=== PATIENT | male | born 1935 | race Caucasian/White ===

== ENCOUNTER 2017-11-09 08:30 | Inpatient (IN) | payer OTHER, MEDICARE ==
[~2017-11-09] VITALS: Ht 177.8 cm; Wt 94.5 kg
[~2017-11-09 08:30] MED LIST: ALBUAER19 INH; AMLO10TA3 PO; APIX1TAB3 PO; ATOR10TA82 PO; BENA20TA14 PO; FINA5TAB4 PO; FLUT0.15 NAE; METO25TA56 PO; MULT-188 PO; MULT-845 PO; ZINC1TAB PO
--- NOTE | 2017-11-09 08:55 | History & Physical Bridge Note ---
H&P Re-Evaluation Bridge Note: I have examined the patient, reviewed the History & Physical and in the interval since the performance of the History & Physical I have noted the following changes of clinical significance: No changes noted
[2017-11-09 09:00] VITALS: BP 121/75; PULSE 101; TEMP 36.7; O2SAT 96; Ht 177.8 cm; Wt 94.5 kg
[2017-11-09] MEDS ORDERED: ZOLPIDEM TARTRATE 5 MG TAB PO PRN (09:00)
[2017-11-09] MEDS ORDERED: ACETAMINOPHEN 325 MG TAB PO PRN (09:00)
[2017-11-09] MEDS ORDERED: ALUMINUM/MAGNESIUM/SIMETH (MAALOX MAX) 30 ML UDC PO PRN (09:00)
[2017-11-09] MEDS ORDERED: ONDANSETRON INJ 2 MG/ML 2 ML VIAL IV PRN (09:00)
[2017-11-09] MEDS ORDERED: MAGNESIUM HYDROXIDE SUSP 30 ML UDC PO PRN (09:00)
[2017-11-09] MEDS ORDERED: POLYETHYLENE (MIRALAX) 17 GM PACK PO PRN (09:00)
[2017-11-09 09:07] VITALS: BP 121/75; PULSE 102; TEMP 36.7; O2SAT 96
[2017-11-09] MEDS ORDERED: ASCA500 PO (09:24)
[2017-11-09] MEDS ORDERED: CINN500C13 PO (09:24)
[2017-11-09] MEDS ORDERED: GING1CAP2 PO (09:24)
[2017-11-09] MEDS ORDERED: CYAN100020 PO (09:24)
[2017-11-09] MEDS ORDERED: PYRI100T4 PO (09:24)
[2017-11-09] MEDS ORDERED: ROYA500C PO (09:24)
[2017-11-09 10:14] LABS: BASO % 0.5 %; BASO ABS # 0.04 K/uL (0-0.2); EOS % 4.8 %; EOS ABS # 0.35 K/uL (0-0.5); HEMATOCRIT 41.3 % (42-52); HEMOGLOBIN 14.2 g/dL (14.0-18.0); IG# 0.02 K/uL (0.00-0.02); LYMPH % 13.9 %; LYMPH ABS # 1.02 K/uL (1.2-3.4); MEAN CELL VOLUME 90.8 fL (80-100); MEAN CORPUSCULAR HEMOGLOBIN 31.2 pg (25-34); MEAN CORPUSCULAR HGB CONC 34.4 g/dl (32-36); MEAN PLATELET VOLUME 10.6 fL (7.4-10.4); MONO % 12.6 %; MONO ABS # 0.92 K/uL (0.11-0.59); NEUT % 67.9 %; NEUT ABS # 4.98 K/uL (1.4-6.5); PLATELET COUNT 145 K/uL (130-400); RED CELL DISTRIBUTION WIDTH CV 12.7 % (11.5-14.5); RED CELL DISTRIBUTION WIDTH SD 41.9 fL (36.4-46.3); WHITE BLOOD COUNT 7.33 K/uL (4.8-10.8)
--- NOTE | 2017-11-09 10:41 | History and Physical ---
"History & Physical Date of Service Nov 09, 2017. History & Physical Mr. Manzano is a very pleasant 82-year-old gentleman who has been following us here in the cardiology clinic for his history of paroxysmal atrial fibrillation. ~Since the last evaluation with me in October of 2016, he states he has been doing okay, but notes he just does not seem to have the same energy he did when he was back in sinus rhythm. ~He states he tires ~quickly with activities that normally would not be an issue for him, but he denies any specific episodes of chest pain, shortness of breath, palpitations, light- headedness, dizziness, or syncope. ~He has been taking his medications as directed without issue and has not missed any dosages of his Eliquis. Today's question, whether or not it would be appropriate to perform a cardioversion with sotalol load which we discussed at our last appointment. PAST MEDICAL HISTORY: ~ 1.~~~~~~~~~~~~~~Paroxysmal atrial fibrillation with a CHADS score of 2. 2.~~~~~~~~~~~~~~History of symptomatic ectopy, both atrial and ventricular. 3.~~~~~~~~~~~~~~Hypertension. 4.~~~~~~~~~~~~~~Dyslipidemia. 5.~~~~~~~~~~~~~~Moderate mitral regurgitation. Review of Systems: Constitutional: ~Denies fevers or chills. ~Denies weight loss. ~~ HEENT: ~No amaurosis fugax. ~No recent significant change in vision. ~No recent change in hearing. ~No significant epistaxis. Pulmonary: ~No history of sleep apnea, pulmonary embolism, COPD or asthma. ~ Cardiovascular: ~As per HPI. GI/Abdomen: ~No dysphagia, pain, melena or hematochezia. ~No significant heartburn. ~Patient denies history of liver or kidney problems. Vascular: ~Patient denies history of claudication, AAA or carotid artery disease. Hematologic: ~No coagulation disorder, anemia or abnormal bleeding. Musculoskeletal: Negative. Skin: ~Negative. Neurologic: ~Normal balance. ~No TIA or CVA symptoms. ~No syncope or near syncope. : Denies. Endocrine: ~No diabetes mellitus or thyroid problems. ~ Allergies as of 11/03/2017 - Kyaw as Reviewed 11/03/2017 Allergen Reaction Noted Kaela hct [valsartan-hydrochlorothiazide] 12/02/2010 Other - drugs 12/09/2005 Current Outpatient Prescriptions Medication Sig Dispense Refill amLODIPine (NORVASC) 10 MG Tablet Take 1 Tab by mouth daily. 90 Tab 3 amoxicillin (AMOXIL) 500 MG Capsule apixaban (ELIQUIS) 5 MG Tablet Take 1 Tab by mouth 2 times a day. 60 Tab 11 atorvaSTATin (LIPITOR) 10 MG Tablet Take 1 Tab by mouth daily. 90 Tab 3 benazepril (LOTENSIN) 20 MG Tablet Take 1 Tab by mouth daily. 90 Tab 3 finasteride (PROSCAR) 5 MG Tablet Take 1 Tab by mouth daily. 90 Tab 3 azithromycin (ZITHROMAX) 250 MG Tablet Take 2 tabs by mouth on the first day, then 1 tab daily on days two through five 6 Tab 0 albuterol (VENTOLIN HFA) 108 (90 BASE) MCG/ACT inhaler Inhale 2 Puffs by mouth every 4 hours as needed for Wheezing. 3 Inhaler 1 metoprolol tartrate (LOPRESSOR) 25 MG Tablet Take 3 Tabs by mouth 2 times a day. 540 Tab 3 Apoaequorin 10 MG CAPS Take 10 mg by mouth 3 times a week. Cinnamon 500 MG Capsule Take 1,000 mg by mouth daily. Flaxseed, Linseed, (EQL FLAX SEED OIL) 1000 MG CAPS Take 1,000 mg by mouth 2 times a day. [place] Jelly 500 MG CAPS Take 1,000 mg by mouth once. Hydrocortisone Butyrate 0.1 % CREA Apply ~topically to affected area daily as needed for Itching or Dry Skin. Apply to affected area 45 g 3 fluticasone (FLONASE) 50 MCG/ACT nasal spray Administer 2 Sprays into each nostril daily. 1 Inhaler 5 NASACORT ALLERGY 24HR 55 MCG/ACT NA AERO 2 sqirts each nostril as needed CENTRUM SILVER PO TABS 1 TABLET DAILY 30 Tab 0 OCUVITE PO TABS 1 TABLET DAILY 30 Tab 1 ZINC 50 MG PO CAPS 1 CAPSULE DAILY 30 Cap 1 PHYSICAL EXAM: Vital Signs: BP 118/76 | Pulse 98 | Resp 16 | Wt 211 lbs 11.2 oz (96.026kg) | BMI 31.64 kg/m | BSA 2.16 m General: ~Awake, alert and oriented x 3. ~No acute distress. HEENT: ~Normocephalic, atraumatic. ~Pupils equal, round and reactive to light and accommodation. ~Extraocular muscles are intact. ~Anicteric sclera. ~Moist mucous membranes. Neck: ~No JVD. ~No bruit. Cardiovascular: ~Irregularly irregular, unable to appreciate murmur, rub or gallop. Pulmonary: ~Clear to auscultation bilaterally. ~No rales, rhonchi, or wheezing. ~~ Abdomen: ~Bowel sounds x 4, soft. ~No rebound, guarding or tenderness. ~No organomegaly. Extremities: ~No clubbing, cyanosis or edema. ~+2 pedal pulses bilaterally. Skin: ~Warm and dry. TEST RESULTS: ~12-lead EKG performed today independently reviewed at this time shows atrial fibrillation at 77 beats per minute. IMPRESSION: ~ 1.~~~~~~~~~~~~~~Atrial fibrillation, symptomatic on chronic Eliquis anticoagulation. 2.~~~~~~~~~~~~~~History of symptomatic ectopy. 3.~~~~~~~~~~~~~~Moderate mitral regurgitation. 4.~~~~~~~~~~~~~~Hypertension. 5.~~~~~~~~~~~~~~Normal LV systolic function, EF 55%, 60%. RECOMMENDATIONS: ~It was my pleasure see Mr. Manzano in reevaluation today. ~From a cardiac standpoint, he was counseled on the benefits, risks, and options in regard to sotalol loading and cardioversion. ~Given the fact he does appear to be symptomatic at this point, I do believe it will be worth a trial. ~So, we will plan on admitting him to [facility] on November 09, and he will initiate sotalol loading for 2 days and then ~likely undergo Dc cardioversion on the with ultimate discharge on the . ~Otherwise, I have given him new prescriptions for all of his medications, but will not renew the metoprolol at this time, and he will get a sotalol prescription after discharge. ~Then I will see him back here before he leaves for [place] in approximately 6 weeks. The patient left the office in good spirits after verbalizing that all of their questions were answered to satisfaction. Prior to their next visit, they were invited to call me with any questions or concerns. Thank you very much for allowing me to participate in the care of your patient. Ramy Blandon Jr, DO Department of Cardiology [facility], [facility]"
[2017-11-09 10:47] LABS: ALBUMIN 3.2 gm/dl (3.4-5.0); CALCIUM 8.6 mg/dl (8.5-10.1); CREATININE 1.02 mg/dl (0.60-1.40); TOTAL PROTEIN 6.4 gm/dl (6.4-8.2)
[2017-11-09] MEDS ORDERED: SOTALOL HCL 80 MG TAB PO STA (11:16)
[2017-11-09 11:39] VITALS: BP 120/79; PULSE 87; TEMP 36.8; O2SAT 96
[2017-11-09 15:34] VITALS: BP 108/72; PULSE 79; TEMP 36.8; O2SAT 97
[2017-11-09 19:50] VITALS: BP 129/75; PULSE 86; TEMP 36.7; O2SAT 97
[2017-11-09] MEDS: APIXABAN 5 MG TAB PO SCH (20:26)
[2017-11-09] MEDS: SOTALOL HCL 80 MG TAB PO SCH (20:29)
[2017-11-09] MEDS ORDERED: NURSING VERBAL MED ORDER ONE (21:30)
[2017-11-09] MEDS: ATORVASTATIN 10 MG TAB PO SCH (22:05)
[2017-11-09] MEDS: FINASTERIDE 5 MG TAB PO SCH (22:06)
[2017-11-09 23:11] VITALS: BP 110/71; PULSE 73; TEMP 36.6; O2SAT 97
[2017-11-10 03:01] VITALS: BP 115/73; PULSE 81; TEMP 36.7; O2SAT 98
[2017-11-10 07:04] VITALS: BP 120/78; PULSE 81; TEMP 36.8; O2SAT 97
[2017-11-10] MEDS: LISINOPRIL 20 MG TAB PO SCH (08:25)
[2017-11-10] MEDS: APIXABAN 5 MG TAB PO SCH ×2 (08:25→20:27)
[2017-11-10] MEDS: CEROVITE ADV FORMULA TAB PO SCH (08:25)
[2017-11-10] MEDS: SOTALOL HCL 80 MG TAB PO SCH ×2 (08:25→20:29)
[2017-11-10] MEDS: FLUTICASONE PROPIONATE NA SPR 16 GM BTL SCH (08:26)
[2017-11-10] MEDS: AMLODIPINE BESYLATE 5 MG TAB PO SCH (08:26)
[2017-11-10] MEDS ORDERED: FINASTERIDE 5 MG TAB PO SCH (09:00)
[2017-11-10] MEDS ORDERED: ATORVASTATIN 10 MG TAB PO SCH (09:00)
--- NOTE | 2017-11-10 10:22 | Cardiology Follow-Up ---
Subjective Subjective Date of Service: Nov 10, 2017. Pt evaluation today including: conversation w/ patient, physical exam, chart review, lab review, review of studies, review of inpatient medication list Additional Details: Pt seen and examined oob in chair, states that he feels great. Denies cp, sob, palpitations, lightheadedness or dizziness. Tolerating sotalol well. Tele reviewed: atrial fibrillation rate controlled with ventricular ectopy or arrhythmia EKG: afib with QTc of 444ms Problem List Medical Problems: (1) Atrial fibrillation with rapid ventricular response Status: Acute Review of Systems Respiratory: No see HPI, No cough, No sputum, No wheezing, No shortness of breath, No dyspnea on exertion, No dyspnea at rest, No hemoptysis, No problem reported Cardiac: No see HPI, No chest pain, No orthopnea, No PND, No edema, No claudication, No palpitations, No problem reported Objective Vital Signs Last Vital Signs Documentation Date Time Temp Pulse Resp B/P (MAP) Pulse Ox O2 Delivery O2 Flow Rate FiO2 11/10/17 08:00 Room Air 11/10/17 07:04 36.8 81 17 120/78 (92) 97 Physical Exam: General Appearance: WD/WN, no apparent distress Eyes: bilateral eyes normal inspection, bilateral eyes PERRL, bilateral eyes EOMI ENT: normal ENT inspection, hearing grossly normal, pharynx normal Neck: supple, no adenopathy, thyroid normal, no JVD, no carotid bruits, trachea midline Respiratory/Chest: chest non-tender, lungs clear, normal breath sounds, no respiratory distress Cardiovascular: no edema, no JVD, no murmur, + irregularly irregular Abdomen: normal bowel sounds, non tender, soft, no organomegaly Extremities: normal inspection, no pedal edema, no calf tenderness 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 atrial fibrillation rates controlled tolerating sotalol load well no ventricular arrhythmias or significant ectopy QTc remains stable without significant prolongation cont Eliquis will cont sotalol load plan on cardioversion in AM pt should receive AM dose of sotalol prior to cardioversion npo after midnight
[2017-11-10 11:41] VITALS: BP 103/72; PULSE 78; TEMP 36.4; O2SAT 95
[2017-11-10] MEDS ORDERED: NURSING VERBAL MED ORDER ONE (12:45)
[2017-11-10] MEDS ORDERED: LOPERAMIDE HCL 2 MG CAP PO PRN (13:00)
[2017-11-10] MEDS ORDERED: LOPERAMIDE HCL 2 MG CAP PO ONE (13:00)
[2017-11-10 15:22] VITALS: BP 107/70; PULSE 70; TEMP 36.4; O2SAT 97
[2017-11-10 19:23] VITALS: BP 113/73; PULSE 80; TEMP 36.8; O2SAT 95
[2017-11-10] MEDS: ATORVASTATIN 10 MG TAB PO SCH (20:28)
[2017-11-10] MEDS: FINASTERIDE 5 MG TAB PO SCH (20:28)
[2017-11-10 23:44] VITALS: BP 107/71; PULSE 84; TEMP 36.9; O2SAT 98
[2017-11-11] VITALS (11 sets, daily range): BP systolic 102–136; BP diastolic 71–91; PULSE 63–90; TEMP 36.3–36.6; O2SAT 94–99
[2017-11-11] MEDS: SOTALOL HCL 80 MG TAB PO SCH ×2 (07:47→20:51)
[2017-11-11] MEDS ORDERED: MIDAZOLAM HCL 1 MG/ML 2ML VIAL ONE ×2 (08:53→09:05)
[2017-11-11] MEDS ORDERED: FENTANYL CITRATE INJ 50 MCG/1 ML 2 ML VIAL ONE (08:53)
[2017-11-11] MEDS: FLUTICASONE PROPIONATE NA SPR 16 GM BTL SCH (09:00)
--- NOTE | 2017-11-11 09:04 | Pre Sedation Assessment ---
Pre Sedation Assessment General Date of Sedation: Nov 11, 2017. Vital Signs Past 12 Hours Date Time Temp Pulse Resp B/P (MAP) Pulse Ox O2 Delivery O2 Flow Rate FiO2 11/11/17 08:46 36.8 89 12 128/82 (97) 96 Room Air 11/11/17 06:46 36.6 71 17 119/78 (92) 98 Room Air 11/11/17 03:31 36.6 84 18 112/73 (86) 94 Room Air 11/10/17 23:44 36.9 84 17 107/71 (83) 98 Room Air Review Cardiovascular: no edema, no gallop, no JVD, no murmur, normal peripheral pulses, + irregularly irregular Lungs: chest non-tender, lungs clear, normal breath sounds, no respiratory distress, no accessory muscle use Pre-Sedation Airway Assessment Smoking Status: Former Smoker Hx of Sleep Apnea: No Short Thick Neck: No Oral Cavity: Dentures Mallampati Classification: Class II ASA Classification: Class II NPO Status Date of Last Intake of Fluids: Nov 11, 2017 Time of Last Intake of Fluids: 0500 Date of Last Intake of Solids: Nov 10, 2017 Time of Last Intake of Solids: 2359 Notes The planned sedation has been discussed with the patient. Informed Consent was obtained. I have identified the patient, determined the appropriateness of sedation and have assessed the patient immediately prior to the procedure. All medicine(s) and interventions are by my order.
--- NOTE | 2017-11-11 09:16 | Post Sedation Assessment ---
Post Sedation Assessment General Date of Sedation Nov 11, 2017. Vital Signs: Vital Signs Past 12 Hours Date Time Temp Pulse Resp B/P (MAP) Pulse Ox O2 Delivery O2 Flow Rate FiO2 11/11/17 08:46 36.8 89 12 128/82 (97) 96 Room Air 11/11/17 06:46 36.6 71 17 119/78 (92) 98 Room Air 11/11/17 03:31 36.6 84 18 112/73 (86) 94 Room Air 11/10/17 23:44 36.9 84 17 107/71 (83) 98 Room Air Post Procedure Recovery Score Activity: (2) Moves 4 extremities * Respiration: (2) Deep breath/cough Circulation: (2) +/-20% PreAnes Value Consciousness: (2) Fully Awake Oxygen Saturation: (2) > 92% On Room Air Discharge Sedation Level of Care: Higher Level of Care (CPL) Post Sedation Plan On clinical assessment, the patient appears to have tolerated the sedation without complications. Patient is recovering as anticipated. Patient will continue to be monitored by nursing and may be discharged when sedation discharge criteria are met per below protocol. Upon Completions of procedure and additional 15 minutes continue every 5 minute vital signs and the P.A.R. score; then discharge to a Phase I or Fast Track to Phase II per the following guidelines: * Discharge Patient to appropriate Phase II area if PAR is 8 or greater or return to pre- procedure baseline. The post - procedure orders will be as directed. * If PAR score is less than 8 or not return to pre-procedure baseline then patient will follow Phase I monitoring till PAR is reached for Phase II. The Phase I may be done in procedure room or may call to secure a Phase I area. * If naloxone or flumazenil are used for reversal, hold in Phase I for an additional 60 -120 minutes before discharge to Phase II. Please call the Sedation Physician to re-evaluate and complete post-note for discharge to Phase II area. Do NOT discharge from procedure sedation or Phase 1 until post- sedation evaluation note is complete by procedure /sedation MD Sedation Discharge Instructions to be given to the patient at discharge to home.
--- NOTE | 2017-11-11 09:18 | [facility] Post Operative Brief Note ---
Immediate Operative Summary Operative Date Nov 11, 2017. Pre-Operative Diagnosis paroxysmal atrial fibrillation Post-Operative Diagnosis same Procedure(s) Performed DC cardioversion start time: 910 stop time: 915 adequate conscious sedation achieved with a total of Versed 3mg and Fentanyl 100mcg Surgeon Barber [employer] Sorter Surgeon(s) Alea ORTIZ Estimated Blood Loss none Findings Consistent with Post-Op Diagnosis Specimens none Drains None Anesthesia Type IV Sedat Cons RN Only Complication(s) none Disposition Accompanied Pt To Recover: yes Disposition: cpl Overlapping Procedure I was present for: the critical portions of procedure. I was immediately available: during the entire case
--- NOTE | 2017-11-11 09:21 | Procedure Note ---
Procedure Note Date of Service Nov 11, 2017. Procedure Note Informed consent obtained risks, benefits, alternatives discussed pt prepped adequate conscious sedation achieved with a total of Versed 3mg and Fentanyl 100mcg 360J of direct current energy delivered with successful cardioversion to sinus rhythm pt tolerated well no complications to be recovered in [facility] as per protocol plan: recover transfer back to [facility] sotalol load
--- NOTE | 2017-11-11 09:56 | Cardiology Follow-Up ---
Subjective Subjective Date of Service: Nov 11, 2017. Pt evaluation today including: conversation w/ patient, physical exam, chart review, lab review, review of studies, review of inpatient medication list Additional Details: Pt seen and examined, uneventful night. Remains symptom free. Denies cp, sob, palpitations, lightheadedness or dizziness. Tele reviewed: atrial fibrillation overnight with arrhythmia or significant ectopy. EKG s/p Cardioversion: sinus rhythm QTc of 477ms. Problem List Medical Problems: (1) Atrial fibrillation with rapid ventricular response Status: Acute Review of Systems Respiratory: No see HPI, No cough, No sputum, No wheezing, No shortness of breath, No dyspnea on exertion, No dyspnea at rest, No hemoptysis, No problem reported Cardiac: No see HPI, No chest pain, No orthopnea, No PND, No edema, No claudication, No palpitations, No problem reported Objective Vital Signs Last Vital Signs Documentation Date Time Temp Pulse Resp B/P (MAP) Pulse Ox O2 Delivery O2 Flow Rate FiO2 11/11/17 09:45 56 14 109/65 (80) 93 Room Air 11/11/17 09:25 2 11/11/17 08:46 36.8 Physical Exam: General Appearance: WD/WN, no apparent distress Eyes: bilateral eyes normal inspection, bilateral eyes PERRL, bilateral eyes EOMI ENT: normal ENT inspection, hearing grossly normal, pharynx normal Neck: supple, no adenopathy, thyroid normal, no JVD, no carotid bruits, trachea midline Respiratory/Chest: chest non-tender, lungs clear, normal breath sounds, no respiratory distress Cardiovascular: no edema, no JVD, no murmur, + irregularly irregular Abdomen: normal bowel sounds, non tender, soft, no organomegaly Extremities: normal inspection, no pedal edema, no calf tenderness 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 atrial fibrillation s/p successful dc cardioversion tolerate well tolerating sotalol load well no ventricular arrhythmias or significant ectopy QTc remains stable without significant prolongation cont Eliquis will cont sotalol load plan on for likely d/c in AM of 11/12
[2017-11-11] MEDS: LISINOPRIL 20 MG TAB PO SCH (11:23)
[2017-11-11] MEDS: APIXABAN 5 MG TAB PO SCH ×2 (11:23→20:51)
[2017-11-11] MEDS: CEROVITE ADV FORMULA TAB PO SCH (11:24)
[2017-11-11] MEDS: AMLODIPINE BESYLATE 5 MG TAB PO SCH (11:24)
[2017-11-11] MEDS: ATORVASTATIN 10 MG TAB PO SCH (20:52)
[2017-11-11] MEDS: FINASTERIDE 5 MG TAB PO SCH (20:52)
[2017-11-12 03:24] VITALS: BP 126/75; PULSE 66; TEMP 36.7; O2SAT 98
[2017-11-12 07:39] VITALS: BP 132/69; PULSE 69; TEMP 36.8; O2SAT 98
[2017-11-12] MEDS: CEROVITE ADV FORMULA TAB PO SCH (08:11)
[2017-11-12] MEDS: LISINOPRIL 20 MG TAB PO SCH (08:11)
[2017-11-12] MEDS: SOTALOL HCL 80 MG TAB PO SCH (08:11)
[2017-11-12] MEDS: APIXABAN 5 MG TAB PO SCH (08:11)
[2017-11-12] MEDS: AMLODIPINE BESYLATE 5 MG TAB PO SCH (08:12)
[2017-11-12] MEDS: FLUTICASONE PROPIONATE NA SPR 16 GM BTL SCH (08:12)
--- NOTE | 2017-11-12 09:09 | Cardiology Follow-Up ---
Subjective Subjective Date of Service: Nov 12, 2017. Pt evaluation today including: conversation w/ patient, physical exam, chart review, lab review, review of studies, review of inpatient medication list Additional Details: Pt seen and examined, states that he feels great. Denies cp, sob, palpitations, lightheadedness or dizziness. Tele reviewed: sinus rhythm without arrhythmia or significant ectopy EKG: sinus QTc of 466ms Problem List Medical Problems: (1) Atrial fibrillation with rapid ventricular response Status: Acute Review of Systems Respiratory: No see HPI, No cough, No sputum, No wheezing, No shortness of breath, No dyspnea on exertion, No dyspnea at rest, No hemoptysis, No problem reported Cardiac: No see HPI, No chest pain, No orthopnea, No PND, No edema, No claudication, No palpitations, No problem reported Objective Vital Signs Last Vital Signs Documentation Date Time Temp Pulse Resp B/P (MAP) Pulse Ox O2 Delivery O2 Flow Rate FiO2 11/12/17 07:39 36.8 69 16 132/69 (90) 98 11/12/17 03:24 Room Air 11/11/17 09:25 2 Physical Exam: General Appearance: WD/WN, no apparent distress Eyes: bilateral eyes normal inspection, bilateral eyes PERRL, bilateral eyes EOMI ENT: normal ENT inspection, hearing grossly normal, pharynx normal Neck: supple, no adenopathy, thyroid normal, no JVD, no carotid bruits, trachea midline Respiratory/Chest: chest non-tender, lungs clear, normal breath sounds, no respiratory distress Cardiovascular: regular rate, rhythm, no edema, no JVD, no murmur, + gallop/S4 Abdomen: normal bowel sounds, non tender, soft, no organomegaly Extremities: normal inspection, no pedal edema, no calf tenderness 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 atrial fibrillation s/p successful dc cardioversion tolerate well tolerating sotalol load well no ventricular arrhythmias or significant ectopy QTc remains stable without significant prolongation will d/c to home on sotalol script sent to [place] [facility] and paper script for [place] [facility], as per patient request my office will arrange f/u with me in 1 month
[2017-11-12] MEDS ORDERED: BTP80 PO (09:11)
--- NOTE | 2017-11-12 09:12 | Discharge Instructions ---
Discharge Instructions Date of Service Nov 12, 2017. Admission Reason for Admission: Sotatol Administration Discharge Discharge Diagnosis / Problem: paroxysmal atrial fibrillation Discharge Goals Goal(s): Improve function Activity Recommendations Activity Limitations: resume your previous activity Lifting Limitations: none Exercise/Sports Limitations: none May Resume Sexual Activity: when tolerated Shower/Bathe: no limitations Driving or Machine Use: no limitations . Instructions / Follow-Up Instructions / Follow-Up Cardiology office will call to arrange follow up in 1 month. Current Hospital Diet Patient's current hospital diet: Regular Diet Discharge Diet Recommended Diet: Regular Diet Procedures Procedures Performed: DC cardioversion start time: 910 stop time: 915 adequate conscious sedation achieved with a total of Versed 3mg and Fentanyl 100mcg Pending Studies Studies pending at discharge: no Medical Emergencies . Who to Call and When: Medical Emergencies: If at any time you feel your situation is an emergency, please call 911 immediately. . Non-Emergent Contact Non-Emergency issues call your: Primary Care Provider . . "Provider Documentation" section prepared by Ramy Blandon. .
[2017-11-12 09:25] VITALS: BP 132/69; PULSE 69; TEMP 36.8; O2SAT 98
--- NOTE | 2017-11-12 19:15 | DISCHARGE SUMMARY ---
HOSPITAL COURSE: Patient presented for elective sotalol loading and cardioversion on 11/09/2017. The patient was started on sotalol 80 mg b.i.d. which he tolerated well without any significant ventricular ectopy or any QT prolongation. On the morning of 11/12/2017, the patient remained in atrial fibrillation despite receiving 5 doses of sotalol and he underwent a discontinue cardioversion with conscious sedation. Patient tolerated the procedure well and was successful in maintaining sinus rhythm. He was then transferred back to the telemetry unit where he received 6th and 7th dose in a monitored setting. He remained in normal sinus rhythm with a normal QT interval and on 11/12/2017, he was discharged to home. During hospital stay, the patient states that he felt better and better each day. PROCEDURES: Discontinue cardioversion. COMPLICATIONS: None. FINAL DISCHARGE DIAGNOSES: Paroxysmal atrial fibrillation status post sotalol loading with successful cardioversion to normal sinus rhythm on chronic Eliquis anticoagulation. DISCHARGE MEDICATIONS: 1. Sotalol 80 mg b.i.d. 2. Amlodipine 10 mg daily. 3. Lisinopril 20 mg daily. 4. Atorvastatin 10 mg daily. 5. Proscar 5 mg daily. 6. Eliquis 5 mg b.i.d. [facility] with me in 1 month. ACTIVITIES: Patient has no restrictions.
== END 2017-11-12 09:50 | disposition home or self-care (01) | DRG 310 ==
LOC: C.2T 08:34
PROVIDERS: ADMIT Internal Medicine Cardiovascular Disease; ATTEND Internal Medicine Cardiovascular Disease
PROC: 5A2204Z Restoration of Cardiac Rhythm, Single (ICD-10-PCS; principal; 2017-11-11 08:22)
DX: I48.0 Paroxysmal atrial fibrillation (principal); I10 Essential (primary) hypertension; E78.5 Hyperlipidemia, unspecified; I34.0 Nonrheumatic mitral (valve) insufficiency; Z79.01 Long term (current) use of anticoagulants; Z79.51 Long term (current) use of inhaled steroids; Z79.899 Other long term (current) drug therapy; Z88.8 Allergy status to other drugs, medicaments and biological substances